=== PATIENT | male | born 1945 | race Two or more races ===

== ENCOUNTER 2017-09-10 14:54 | Outpatient (CLI) | payer OTHER | END 2017-09-10 14:58 | disposition home or self-care (01) | LOC: RAD 14:54 | DX: R06.02 Shortness of breath (principal) ==

== ENCOUNTER 2018-07-01 11:39 | Outpatient (CLI) | payer OTHER | END 2018-07-01 11:42 | disposition home or self-care (01) | LOC: RAD 11:39 | DX: R06.02 Shortness of breath (principal) ==

== ENCOUNTER → 2019-06-04 11:29 | Outpatient (CLI) | payer OTHER | END | disposition home or self-care (01) | LOC: RAD 11:29 | DX: R06.02 Shortness of breath (principal) ==

== ENCOUNTER → 2020-07-07 | Outpatient (CLI) | payer OTHER | END | disposition home or self-care (01) | LOC: RAD 10:12 | PROVIDERS: ATTEND Family Medicine | DX: R06.02 Shortness of breath (principal) ==

== ENCOUNTER 2022-09-20 14:38 | Outpatient (CLI) | payer OTHER | END 2022-09-20 14:45 | disposition home or self-care (01) | LOC: RAD 14:38 | DX: M54.2 Cervicalgia (principal); M54.6 Pain in thoracic spine; M54.50 Low back pain, unspecified; M99.05 Segmental and somatic dysfunction of pelvic region ==

== ENCOUNTER 2023-06-07 10:51 | Outpatient (CLI) | payer OTHER | END 2023-06-07 10:53 | disposition home or self-care (01) | LOC: NUCLEAR 10:51 | PROVIDERS: ATTEND Physical Medicine & Rehabilitation | DX: I87.2 Venous insufficiency (chronic) (peripheral) (principal) ==

== ENCOUNTER 2023-06-10 08:01 | Outpatient (CLI) | payer OTHER | END 2023-06-10 08:02 | disposition home or self-care (01) | LOC: NUCLEAR 08:01 | PROVIDERS: ATTEND Physical Medicine & Rehabilitation | DX: I87.2 Venous insufficiency (chronic) (peripheral) (principal) ==

== ENCOUNTER 2023-06-25 07:13 | Outpatient (CLI) | payer OTHER | END 2023-06-25 07:28 | disposition home or self-care (01) | LOC: NUCLEAR 07:13 | PROVIDERS: ATTEND Internal Medicine Cardiovascular Disease | DX: I25.119 Atherosclerotic heart disease of native coronary artery with unspecified angina pectoris (principal); I50.9 Heart failure, unspecified | CPT/HCPCS: 78452; 93017; A9500 ==

== ENCOUNTER 2024-02-13 12:40 | Outpatient (CLI) | payer OTHER | END 2024-02-13 12:56 | disposition home or self-care (01) | LOC: RAD 12:40 | PROVIDERS: ATTEND Family Medicine | DX: R06.02 Shortness of breath (principal) ==

== ENCOUNTER 2025-02-04 10:11 | Outpatient (CLI) | payer OTHER | END 2025-02-04 10:15 | disposition home or self-care (01) | LOC: RAD 10:11 | PROVIDERS: ATTEND Family Medicine | DX: R06.02 Shortness of breath (principal); F17.200 Nicotine dependence, unspecified, uncomplicated ==